=== PATIENT | female | born 1940 | race Caucasian/White ===

== ENCOUNTER 2016-08-05 17:15 | Inpatient (IN) | payer OTHER ==
--- NOTE | ~2016-08-05 | HP ---
History And Physical [place] [id number] [facility] [place]. [address] NAME: DORIE ALMANZAR : 38 STATUS : ADM IN [facility]#: [id number] AGE: 76 ADM/REG DATE : 08/05/16 MR#: [id number] REPORT SERV DATE: 08/06/16 DICTATED BY: SUKHWINDER ROSALES DATE: 08/05/16 REPORT STATUS : Draft TRANSCRIBED BY: MODJethro DATE: 08/05/16 DATE OF ADMISSION: 08/05/2016 PRIMARY DOG WARDEN: Washington Langford M.D. ADMISSION REASON: Hypertensive emergency and demand ischemia. HISTORY OF PRESENT ILLNESS: Ms. Almanzar is a 76-year-old female with a history of 2010 coronary artery bypass grafting and aortic valve replacement, initial presenting symptoms at that time were exertional shortness of breath, who is triaged to the [facility] ER after she saw primary care today with a complaint of chest pain. Her chest pain symptoms were described as a left precordial aching sensation that she associated with strain while using her walker. Symptoms lasted only a few seconds before spontaneous resolution. Symptoms been intermittent and similar to this over the past several days. She has had no exertional shortness of breath or recurrent anginal type symptoms. She denies palpitations or syncope. She has had no orthopnea or edema. On arrival to her primary care office, an ECG showed a left bundle branch block. On arrival to the ER, she was anxious with significant hypertension and blood pressure of 210/105, now down to 160/80 after IV hydralazine and nitroglycerin. She is resting comfortably with no complaints. She has had no preceding orthopnea, PND, or edema. Of note, she was previously on lisinopril but was recently discontinued over concerns of acute renal failure in a sister who was on lisinopril. She did recently start amlodipine. REVIEW OF SYSTEMS: Pertinent positives and negatives are as outlined above, all other negative. PAST MEDICAL HISTORY: 1. CAD, status post CABG in 2009. 2. Aortic stenosis, status post aortic valve replacement in 2009. 3. Hypertension. 4. Hyperlipidemia. 5. Anxiety. MEDICATIONS: 1. Metoprolol 50 mg twice daily. 2. Norvasc 5 mg daily. 3. Aspirin 81 mg daily. 4. Crestor 5 mg daily. 5. Percocet p.r.n. 6. Ativan 1 mg twice daily. ALLERGIES: INCLUDE TAGAMET WITH AN UNKNOWN REACTION AND AMOXICILLIN WHICH CAUSES A RASH. SOCIAL HISTORY: She lives at home. She does not use tobacco products or consume alcohol. FAMILY HISTORY: There is no significant family history of premature CAD, cardiomyopathy, or History And Physical [address] [place]. [address] NAME: DORIE ALMANZAR : 38 STATUS : ADM IN PAT#: [id number] AGE: 76 ADM/REG DATE : 08/05/16 MR#: [id number] REPORT SERV DATE: 08/06/16 DICTATED BY: SUKHWINDER ROSALES DATE: 08/05/16 REPORT STATUS : Draft TRANSCRIBED BY: YORDAN DATE: 08/05/16 sudden . PHYSICAL EXAMINATION: VITALS: Temp afebrile, Pulse 70, Respirations 16, BP 160/90. MENTAL STATUS: Awake, alert, and oriented x3. PSYCH: Euthymic, normal affect. GENERAL: Well appearing and in no distress. HEENT: Sclerae anicteric, mucous membranes moist and without lesions. NECK: No jugular venous distention. No hepatojugular reflux, carotid upstrokes 2+ and symmetric, there are no carotid or subclavian bruit. LUNGS: Clear to auscultation without wheezes, crackles, or rales. CARDIOVASCULAR: Regular with S1 and S2, No audible S3. There is a 1/6 early systolic ejection murmur at the right sternal border without radiation. There is no parasternal lift. PMI is not palpable. Chest pain symptoms are reproducible to precordial palpation at the left lower sternal border. ABDOMEN: Soft and nontender. Bowel sounds positive and normoactive. No hepatomegaly, no masses, no abdominal bruit. PULSES: Radial and dorsalis pedis pulses 2+ and symmetric. EXTREMITIES: Warm and without edema. SKIN: No clubbing or cyanosis, no rashes or lesions. ACCESSORY DATA: ECG shows sinus rhythm with a left bundle branch block. Initial serum chemistry with a creatinine of 0.9, normal electrolytes. White count of 6, hematocrit 50, and platelets 134. Troponin 0.1, magnesium 2.4. IMPRESSION: 1. Atypical/musculoskeletal chest pain. 2. Hypertensive urgency. 3. Abnormal troponin, demand ischemia. 4. Coronary artery disease, status post CABG. 5. Aortic stenosis status post aortic valve replacement. 6. Hyperlipidemia. PLAN: Ms. Almanzar describes atypical/musculoskeletal type chest pain with certain movements and with using her walker. She has had no exertional angina and no recurrent exertional shortness of breath as her original anginal equivalent in 2009. She did have significant uncontrolled hypertension and hypertensive urgency on arrival, which is now better. Her borderline troponin likely represents demand ischemia in that setting; however, given her history of coronary artery disease, we will start an IV heparin drip and serial troponins to rule out acute coronary syndrome. We will check a.m. labs and an a.m. ECG. She will change metoprolol to carvedilol for better blood pressure control, and we will add losartan 25 mg in the evening and continue amlodipine 5 mg in the morning. Continue statin and aspirin therapy as prescribed. She was prescribed p.r.n. nitroglycerin and hydralazine. She will be kept n.p.o. after midnight for decision for further evaluation and testing tomorrow morning. History And Physical [address] [address] NAME: DORIE ALMANZAR : 38 STATUS : ADM IN [facility]#: [id number] AGE: 76 ADM/REG DATE : 08/05/16 MR#: [id number] REPORT SERV DATE: 08/06/16 DICTATED BY: SUKHWINDER ROSALES. DATE: 08/05/16 REPORT STATUS : Draft TRANSCRIBED BY: YORDAN DATE: 08/05/16 JENNI/YORDAN Sukhwinder Rosales M.D. / [id number] CC: Enio Yoon M.D.
[2016-08-05 15:09] LABS: BASOPHILS 0.6 %; BASOPHILS ABSOLUTE 0.04 10/3/uL (0.0-0.16); EOSINOPHILS 1.6 %; HEMOGLOBIN 16.3 g/dL (12.0-16.0); IMMATURE GRANULOCYTES 0.3 %; IMMATURE GRANULOCYTES ABSOLUTE 0.02 10/3/uL (0.0-0.11); LYMPHOCYTES 39.6 %; LYMPHOCYTES ABSOLUTE 2.51 10/3/uL (0.67-4.30); MANUAL DIFF NO %; MEAN CORPUS HGB CONC 32.6 g/dL (32.0-36.0); MEAN CORPUSCULAR HEMOGLOB 29.6 pg (26.0-34.0); MEAN CORPUSCULAR VOLUME 90.7 fL (80-100); MONOCYTES 10.3 %; MONOCYTES ABSOLUTE 0.65 10/3/uL (0.21-1.20); NEUTROPHILS 47.6 %; NEUTROPHILS ABSOLUTE 3.02 10/3/uL (2.02-8.40); PLATELET COUNT 134 10/3/uL (150-400); RBC DISTRIBUTION WIDTH 15.6 % (12.0-16.0); RED CELL COUNT 5.51 10/6/uL (4.0-5.6); WHITE BLOOD CELLS 6.3 10/3/uL (4.5-10.5)
[2016-08-05 15:18] LABS: PARTIAL THROMBO TIME 30.7 SEC (22.5-37.2); PROTIME (NOT ORD) 13.2 SEC (12.0-14.5)
[2016-08-05 15:25] LABS: BUN (BLOOD UREA NITROGEN) 19 MG/DL (6-23); CALCIUM, SERUM 8.9 MG/DL (8.5-10.4); CHLORIDE, SERUM 104 MMOL/L (96-112); CO2 (CARBON DIOXIDE) 28 MMOL/L (24-34); CREATININE 0.98 MG/DL (0.55-1.02); GFR AFRICAN AMERICAN 64 ML/MIN (>=60); GFR NON AFRICAN AMERICAN 56 ML/MIN (>=60); POTASSIUM, SERUM 4.1 MMOL/L (3.5-5.3); SODIUM, SERUM 141 MMOL/L (135-148)
[2016-08-05 15:26] LABS: GLUCOSE, SERUM 112 MG/DL (60-99)
[2016-08-05 15:27] LABS: CHEST PAIN PROFILE TAT 0 Hrs 24 Mins; TROPONIN I 0.11 NG/ML (<0.05)
[2016-08-05] MEDS ORDERED: PERCOCET 10/3251 TAB PO (17:27)
[2016-08-05] MEDS ORDERED: ATV1 PO (17:27)
[2016-08-05] MEDS ORDERED: HALF81 PO (17:27)
[2016-08-05] MEDS ORDERED: LOP50 PO (17:27)
[2016-08-05] MEDS ORDERED: NORV5 PO (17:28)
[2016-08-05] MEDS ORDERED: CRESTOR5 MG PO (17:28)
[2016-08-05 22:52] LABS: CK-MB 1.1 NG/ML; CPK 135 U/L (0-200)
[2016-08-06 03:30] LABS: BASOPHILS 0.5 %; BASOPHILS ABSOLUTE 0.03 10/3/uL (0.0-0.16); EOSINOPHILS 1.4 %; EOSINOPHILS ABSOLUTE 0.09 10/3/uL (0.0-0.53); HEMATOCRIT 44.9 % (36.0-48.0); HEMOGLOBIN 14.9 g/dL (12.0-16.0); LYMPHOCYTES 43.6 %; LYMPHOCYTES ABSOLUTE 2.83 10/3/uL (0.67-4.30); MANUAL DIFF NO %; MEAN CORPUS HGB CONC 33.2 g/dL (32.0-36.0); MEAN CORPUSCULAR HEMOGLOB 29.6 pg (26.0-34.0); MEAN CORPUSCULAR VOLUME 89.1 fL (80-100); MEAN PLATELET VOLUME 10.7 fL (9.2-13.0); MONOCYTES 11.2 %; MONOCYTES ABSOLUTE 0.73 10/3/uL (0.21-1.20); NEUTROPHILS 43.3 %; NEUTROPHILS ABSOLUTE 2.81 10/3/uL (2.02-8.40); PLATELET COUNT 131 10/3/uL (150-400); RBC DISTRIBUTION WIDTH 15.8 % (12.0-16.0); RED CELL COUNT 5.04 10/6/uL (4.0-5.6); WHITE BLOOD CELLS 6.5 10/3/uL (4.5-10.5)
[2016-08-06 03:47] LABS: CALCIUM, SERUM 8.6 MG/DL (8.5-10.4); CHLORIDE, SERUM 104 MMOL/L (96-112); CHOLESTEROL 108 MG/DL (< 200); CO2 (CARBON DIOXIDE) 27 MMOL/L (24-34); GFR AFRICAN AMERICAN 56 ML/MIN (>=60); GFR NON AFRICAN AMERICAN 48 ML/MIN (>=60); GLUCOSE, SERUM 100 MG/DL (60-99); POTASSIUM, SERUM 3.4 MMOL/L (3.5-5.3); SGPT(ALT) 18 U/L (5-65); SODIUM, SERUM 140 MMOL/L (135-148)
[2016-08-06 03:48] LABS: BUN (BLOOD UREA NITROGEN) 23 MG/DL (6-23); CHOL/HDL RATIO(NOT ORDER) 2.4 (0-5); HDL CHOLESTEROL 45 MG/DL (> 49); LDL CHOLESTEROL 42 MG/DL (< 130); NON-HDL CHOLESTEROL 63 MG/DL (< 160); TRIGLYCERIDE 106 MG/DL (< 150)
[2016-08-06 06:45] LABS: ASCORBIC ACID (UR NOT ORDER) NEG (NEG); BILIRUBIN, URINE NEGATIVE (NEG); KETONE, URINE NEGATIVE (NEG); LEUKOCYTE ESTERASE(NOT OR LARGE (NEG); WBC (NOT ORDERED) (RFLEX) 87 (0-5)
[2016-08-06] MEDS ORDERED: COREG6 PO (09:19)
[2016-08-06] MEDS ORDERED: COZ25 PO (09:20)
[2016-08-06] MEDS ORDERED: NITROSTAT0.4 MG SL (09:20)
[2016-08-06] MEDS ORDERED: OCEAN NAS (09:21)
== END 2016-08-06 11:51 | disposition home or self-care (01) | DRG 305 ==
LOC: ER 17:15 → 5NO 19:17
PROVIDERS: Emergency Medicine; Internal Medicine Cardiovascular Disease
DX: I16.1 Hypertensive emergency (principal); I24.8 Other forms of acute ischemic heart disease; Z95.1 Presence of aortocoronary bypass graft; Z95.2 Presence of prosthetic heart valve; I25.10 Atherosclerotic heart disease of native coronary artery without angina pectoris; E78.5 Hyperlipidemia, unspecified
CPT/HCPCS: 71020; 80048; 80061; 81001; 82550; 82553; 83735; 84460; 84484; 85025; 85610; 85730; 87086; 93005; 96374; 99285; A9270-GY; J0360